=== PATIENT | female | born 1970 | race African-American/Black ===

== ENCOUNTER → 2017-05-22 | Outpatient (CLI) | payer OTHER ==
--- NOTE | 2017-05-31 16:12 | REP ---
UNILATERAL DIAGNOSTIC MAMMOGRAM, LEFT BREAST WITH LEFT BREAST ULTRASOUND: There is a family history of two maternal aunts with breast cancer. Patient complains of a grape sized lump for the past 2 weeks with pain in the upper outer quadrant of the left breast. The area is marked on the skin with a triangular marker. Additional spot compression views are obtained. Comparison is made with multiple prior exams, most recently 12/15/2013 from [facility]. Scattered fibroglandular tissue is unchanged when compared to the prior studies. There is no new mass or architectural distortion. No clustered microcalcifications are seen. Real-time sonographic evaluation of the upper outer quadrant of the left breast is performed at the site of the reported palpable abnormality. There is dense fibroglandular tissue without evidence of a cystic or solid mass. IMPRESSION: ACR 2 benign. No mass of clustered microcalcifications. There is no mammographic or sonographic evidence of a mass at the site of the reported palpable abnormality in the upper outer quadrant of the left breast. A negative mammogram and ultrasound should not deter biopsy if there is a clinically suspicious palpable mass present. This mammogram was interpreted with the aid of an FDA-approved computer-aided detection system. The patient states she had a clinical breast exam in 04/2017. The patient letter being requested is M2. Signed by Gio Morel MD 05/31/2017 07:35 P
== END ==
LOC: M RAD 14:45
PROVIDERS: ATTEND Internal Medicine Hospice and Palliative Medicine
DX: Z12.31 Encounter for screening mammogram for malignant neoplasm of breast (principal); N63.21 Unspecified lump in the left breast, upper outer quadrant; Z80.3 Family history of malignant neoplasm of breast
CPT/HCPCS: 76642; G0206

== ENCOUNTER 2017-07-18 17:34 | Emergency (ER) | payer OTHER ==
[2017-07-18] MEDS: methylPREDNISolone INJ 125 MG/2 ML VIAL (J2930) IM (18:55)
== END 2017-07-18 18:58 | disposition home or self-care (01) ==
LOC: M ED 17:34
DX: J30.9 Allergic rhinitis, unspecified (principal); T78.40XA Allergy, unspecified, initial encounter; J01.90 Acute sinusitis, unspecified
CPT/HCPCS: J2930

== ENCOUNTER → 2021-03-21 | Outpatient (CLI) | payer OTHER ==
[~2021-03-21] MED LIST: ALLE180T33 PO; ATEN25TA; AUGM875T28 PO; CITA20TA6; DIFL150T PO; KEFL500C17 PO; LEVO50TA5; ZYRT10CA PO
--- NOTE | 2021-03-21 14:39 | REPMRS ---
Patient History The patient states she has not had a clinical breast exam in over a year. Family history of breast cancer at age 60 in maternal aunt, breast cancer in maternal aunt. Took progesterone for 1 month. Took unspecified hormones for 1 year 2 months. Tomosynthesis is performed. Volpara breast density is b. [facility] lifetime risk of breast cancer 15.0%. Pfizer vaccine 08/27/20 left arm. 09/16/20 left arm. Patient states no breast complaints today. Patient has signed MRS History Sheet. Digital Woman Screen Mammo: March 21, 2021 - Exam #: [id number] Bilateral CC and MLO view(s) were taken. Technologist: RT Jennifer Prior study comparison: May 22, 2017, left breast digital mammo diagnostic unilateral, performed at [facility]. November 2016, digital bilateral screening mammo, performed at [facility]. FINDINGS: There are scattered fibroglandular densities. There has been no change in the appearance of the mammogram from the prior studies. There is a mild amount of residual fibroglandular tissue which is fairly symmetric. There is no interval development of dominant mass, architectural distortion, or clustered microcalcification suggestive of malignancy. Assessment: BI-RADS/ACR category 1 mammogram. Negative Mammogram. Recommendation Routine screening mammogram in 1 year (for women over age 40). This mammogram was interpreted with the aid of an FDA-approved computer-aided dectection system. Electronically Signed By: Gio Morel MD 03/21/21 [id number]
== END ==
LOC: M WHC 12:41
PROVIDERS: ATTEND Family Medicine
DX: Z12.31 Encounter for screening mammogram for malignant neoplasm of breast (principal)

== ENCOUNTER → 2021-10-19 | Outpatient (CLI) | payer OTHER | LOC: M WHC 12:39 | PROVIDERS: ATTEND Family Medicine | DX: D25.9 Leiomyoma of uterus, unspecified (principal) ==